=== PATIENT | female | born 1950 | race Caucasian/White ===

== ENCOUNTER 2018-09-18 16:33 | Inpatient (IN) | payer MEDICARE, BC ==
[~2018-09-18] VITALS: Ht 160 cm; Wt 64.4 kg
--- NOTE | 2018-09-18 17:29 | NUR ---
PRIOR TO ARRIVAL IN ER FORMING DEPARTMENT END FINDER STARTED 500ML NS TKO, 100ML IN PRIOR TO ARRIVAL
[2018-09-18] MEDS ORDERED: normal saline 1000ML IV soln IVB ONE (18:15)
[2018-09-18] MEDS: ondansetron/PF 4mg/2ml inj IV ONE ×2 (18:25→18:30)
[2018-09-18 18:50] LABS: BASOPHILS % (AUTO) 0 % (0-1); EOSINOPHILS % (AUTO) 0.2 % (0-6); HEMOGLOBIN 11.4 g/dl (12.0-16.0); LYMPHOCYTES # (AUTO) 0.3 X10'3 (1.1-4.8); MEAN CORPUSCULAR HEMOGLOBIN 32.3 PG (27.0-31.0); MEAN CORPUSCULAR HGB CONC 33.7 % (33.0-36.5); MEAN CORPUSCULAR VOLUME 95.8 FL (78-98); MEAN PLATELET VOLUME 9.1 FL (7.4-10.4); MONOCYTES # (AUTO) 0.3 X10'3 (0-0.9); MONOCYTES % (AUTO) 5.5 % (2-12); NEUTROPHILS # (AUTO) 5.5 X10'3 (1.8-7.7); NEUTROPHILS % (AUTO) 89.3 % (42-75); PLATELET COUNT 180 X10'3 (140-440); RED BLOOD COUNT 3.54 X10'6 (4.20-5.60); RED CELL DISTRIBUTION WIDTH 12.9 % (11.5-14.5); WHITE BLOOD COUNT 6.2 X10'3 (4.5-11.0)
[2018-09-18 19:11] LABS: PROTHROMBIN TIME 10.4 SECONDS (9.0-12.0)
--- NOTE | 2018-09-18 19:11 | NUR ---
RELIEVING RN FOR LUNCH, PT IS RESTING QUIETLY ON GURNEY,
--- NOTE | 2018-09-18 19:22 | NUR ---
ATTEMPTED IN AND OUT CATH, NO SUCCESS, PT AMB WITH MIN ASSIST TO RESTROOM
[2018-09-18 19:29] LABS: ALANINE AMINOTRANSFERASE 43 U/L (12-78); ALBUMIN 2.5 G/DL (3.4-5.0); ALBUMIN/GLOBULIN RATIO 0.6 (1.1-1.5); ALKALINE PHOSPHATASE 91 IU/L (46-116); ANION GAP 12 (8-16); ASPARTATE AMINO TRANSFERASE 39 U/L (10-37); BILIRUBIN,TOTAL 0.4 MG/DL (0.1-1.0); BLOOD UREA NITROGEN 62 MG/DL (7-18); BUN/CREATININE RATIO 30.7 (6.6-38.0); CALCIUM 9.7 MG/DL (8.5-10.1); CHLORIDE 92 MMOL/L (99-107); CREATININE 2.02 MG/DL (0.40-0.90); GLUCOSE 420 MG/DL (70-104); LIPASE 134 U/L (73-393); POTASSIUM 3.6 MMOL/L (3.5-5.1); SODIUM 127 MMOL/L (135-145); TOTAL CARBON DIOXIDE 22.9 MMOL/L (24-32); TOTAL PROTEIN 6.6 G/DL (6.4-8.2); eGFR 24 ML/MIN
[2018-09-18 20:17] LABS: CLARITY,URINE CLEAR (Clear); COLOR,URINE YELLOW (Yellow); GLUCOSE, URINE >=1000 mg/dl (Neg); KETONES,URINE TRACE mg/dl (Neg); LEUKOCYTE ESTERASE ,URINE NEGATIVE (Neg); NITRITES, URINE POSITIVE (Neg); OCCULT BLOOD,URINE SMALL (Neg); PROTEIN,URINE 100 mg/dl (Neg); UROBILINOGEN,URINE 0.2 E.U/dL (0.2-1.0)
[2018-09-18 20:19] LABS: UA COLLECTION TYPE CLN CATCH MIDSTREAM
[2018-09-18 20:20] LABS: BACTERIA,URINE 4+ /HPF (Neg); RBC,URINE 0-2 /HPF (0-2); SQUAMOUS EPITHELIAL CELL,UR FEW /LPF (FEW)
[2018-09-18] MEDS ORDERED: CefTRIAXone/D5W-Rocephin 1gm 50 ML IV ONE (21:00)
[2018-09-18] MEDS ORDERED: levoFLOXACIN-Levaquin 500mg/D5 100 ML IV ONE (21:10)
--- NOTE | 2018-09-18 21:12 | NUR ---
UNABLE TO DO MED REC AT THIS TIME, FAMILY IS GOING HOME TO BRING MEDS IN, PHARMACY SAID THEY DO NOT HAVE ANTIREJECTION MEDS
[2018-09-18] MEDS ORDERED: ondansetron/PF 4mg/2ml inj IV PRN (21:15)
[2018-09-18] MEDS: normal saline 1000ml 1,000 ML IV SCH (23:14)
[2018-09-18] MEDS ORDERED: insulin regular, human 10 units/0.1 ml syringe IV ONE (23:35)
--- NOTE | 2018-09-18 23:48 | NUR ---
Yarelis ANTHONY from ED called report, provided opportunity for questions. will assess when she arrives.
[2018-09-19 00:08] VITALS: BP 154/49
--- NOTE | 2018-09-19 00:40 | NUR ---
Daughter, Georgie, called requesting information. Spoke to patient who states okay to give daughter information. new code word given [id number]. Daughter became tearful when talking about mother. Encouraged to take deep breaths and try to sleep. Explained patient will be here and we will be monitoring her. Will continue to monitor.
[2018-09-19] MEDS ORDERED: ibuprofen 200mg tablet PO ONE (00:55)
--- NOTE | 2018-09-19 01:00 | NUR ---
Notified Sahil NARANJO of patient's temp of 102.7F oral, patient is allergic to tylenol, received order to give ibuprofen 600 mg po now, cancel troponins, and place kinney catheter to monitor output accurately if patient is incontinent or not able to get to restroom to provide strict I/Os. Will continue to monitor.
[2018-09-19] MEDS ORDERED: glucagon, human recombinant 1mg kit SUBCUT PRN ×2 (02:50→05:40)
[2018-09-19] MEDS ORDERED: dextrose ORAL solution 15 GM/59 ML bottle PO PRN ×4 (02:50→05:40)
[2018-09-19] MEDS ORDERED: MESSAGE TO PHARMACY PO ONE ×2 (02:50→05:40)
[2018-09-19] MEDS ORDERED: dextrose 50%-water 50ml dispensing syringe IV PRN ×4 (02:50→05:40)
[2018-09-19] MEDS ORDERED: insulin Lispro (HumaLOG) vial - multi-dose SQ SCH (02:50)
[2018-09-19 05:01] LABS: BASOPHILS % (AUTO) 0.2 % (0-1); EOSINOPHILS % (AUTO) 0 % (0-6); HEMATOCRIT 31.1 % (35.0-45.0); HEMOGLOBIN 10.4 g/dl (12.0-16.0); LYMPHOCYTES # (AUTO) 0.4 X10'3 (1.1-4.8); LYMPHOCYTES % (AUTO) 8.2 % (21-51); MEAN CORPUSCULAR HGB CONC 33.5 % (33.0-36.5); MEAN CORPUSCULAR VOLUME 95.5 FL (78-98); MEAN PLATELET VOLUME 9.5 FL (7.4-10.4); MONOCYTES % (AUTO) 0.2 % (2-12); NEUTROPHILS # (AUTO) 4.7 X10'3 (1.8-7.7); NEUTROPHILS % (AUTO) 91.4 % (42-75); PLATELET COUNT 166 X10'3 (140-440); RED BLOOD COUNT 3.26 X10'6 (4.20-5.60); RED CELL DISTRIBUTION WIDTH 12.8 % (11.5-14.5); WHITE BLOOD COUNT 5.2 X10'3 (4.5-11.0)
[2018-09-19 05:14] LABS: ALANINE AMINOTRANSFERASE 37 U/L (12-78); ALBUMIN 2.3 G/DL (3.4-5.0); ALBUMIN/GLOBULIN RATIO 0.6 (1.1-1.5); ALKALINE PHOSPHATASE 73 IU/L (46-116); ANION GAP 10 (8-16); ASPARTATE AMINO TRANSFERASE 37 U/L (10-37); BILIRUBIN,TOTAL 0.3 MG/DL (0.1-1.0); BLOOD UREA NITROGEN 63 MG/DL (7-18); BUN/CREATININE RATIO 34.6 (6.6-38.0); CALCIUM 9.5 MG/DL (8.5-10.1); CHLORIDE 96 MMOL/L (99-107); CREATININE 1.82 MG/DL (0.40-0.90); GLUCOSE 318 MG/DL (70-104); MAGNESIUM 1.9 MG/DL (1.5-2.4); PHOSPHORUS 2.7 MG/DL (2.3-4.5); SODIUM 130 MMOL/L (135-145); TOTAL CARBON DIOXIDE 24.1 MMOL/L (24-32); eGFR 28 ML/MIN
[2018-09-19 05:16] LABS: POTASSIUM 2.9 MMOL/L (3.5-5.1)
[2018-09-19] MEDS ORDERED: potassium Cl 20 mEq SR tablet PO ONE (05:35)
[2018-09-19] MEDS ORDERED: insulin regular, human vial - multi-dose SQ SCH (05:40)
--- NOTE | 2018-09-19 06:10 | NUR ---
Patient in room [facility]. I have received report from GABRIELLE Chery and had the opportunity to ask questions and assume patient care.
[2018-09-19 06:40] LABS: TOTAL CELLS COUNTED 100
[2018-09-19 06:41] LABS: PLATELET ESTIMATE NORMAL
--- NOTE | 2018-09-19 06:51 | NUR ---
Problems reprioritized. Patient report given, questions answered & plan of care reviewed with La Nena RN. Patient having vital signs taken.
[2018-09-19 07:00] VITALS: BP 124/40
--- NOTE | 2018-09-19 08:00 | NUR ---
Pt states, "I am withdrawaling & I need something as strong as you got, just tell them it is for pain." Otherwise, I am going to leave right now, un-hook me."Dr Melodie callahan informing of the above. Addendum: 09/19/18 at 0917 by La Nena Martines RN Delete. Wrong pt.
[2018-09-19 08:13] LABS: HEMOGLOBIN A1C 9.6 % (4.5-6.2)
--- NOTE | 2018-09-19 08:45 | NUR ---
Pt sleeping. Will administer haldol as RX'd when pt awakes & after takes shower she requested earlier today. Pt informed to wait to take shower until abx infused. Pt agreed @ that time. Addendum: 09/19/18 at 0918 by La Nena Martines RN [place]. Wrong pt.
[2018-09-19] MEDS: insulin Lispro (HumaLOG) vial - multi-dose SQ SCH ×3 (09:22→22:07)
[2018-09-19] MEDS ORDERED: [UNRECOGNIZED DRUG - OTHER] PO (09:57)
[2018-09-19] MEDS ORDERED: TACR1CAP28 PO ×2 (09:57)
[2018-09-19] MEDS ORDERED: CHOL400C8 PO (09:57)
[2018-09-19] MEDS ORDERED: MULT-933 PO (09:57)
[2018-09-19] MEDS ORDERED: PRE5T PO (09:57)
[2018-09-19] MEDS ORDERED: VALG450T4 PO (09:57)
[2018-09-19] MEDS ORDERED: PANT-47 PO (09:57)
[2018-09-19] MEDS ORDERED: PRAV20TA PO (09:57)
[2018-09-19] MEDS ORDERED: HYDR-4070 PO (09:57)
[2018-09-19] MEDS ORDERED: CARV-50 PO (09:57)
[2018-09-19] MEDS ORDERED: CHLO25TA2 PO (09:57)
[2018-09-19 10:30] VITALS: BP 146/47
[2018-09-19] MEDS: pantoprazole 40mg Tablet.DR PO SCH (11:15)
[2018-09-19] MEDS: acetaminophen 325mg tablet PO PRN ×2 (11:16→22:08)
[2018-09-19] MEDS: MYCOPHENOLATE PO SCH ×2 (11:35→20:23)
[2018-09-19] MEDS: tacrolimus anhydrous 1mg capsule PO SCH ×2 (11:35→21:47)
[2018-09-19] MEDS: polyethylene glycol 3350 17gm powd pack PO PRN (13:01)
[2018-09-19] MEDS: normal saline 1000ml 1,000 ML IV SCH ×2 (17:12→17:45)
--- NOTE | 2018-09-19 18:30 | NUR ---
Problems reprioritized. Patient report given, questions answered & plan of care reviewed with GABRIELLE Yoo.
[2018-09-19 20:00] VITALS: BP 177/62
[2018-09-19] MEDS: carVEDilol 12.5mg tablet PO SCH (20:23)
[2018-09-19] MEDS ORDERED: levoFLOXACIN-Levaquin 250mg/D5 50 ML IV SCH (21:00)
[2018-09-19] MEDS ORDERED: insulin glargine (Lantus) pen - multi-dose SQ SCH (21:00)
[2018-09-19] MEDS: hydrALAZINE 25 MG tablet PO SCH (21:47)
[2018-09-19 22:03] VITALS: BP 181/59
[2018-09-19] MEDS: insulin glargine (Lantus) pen - multi-dose SQ SCH (22:07)
[2018-09-20] VITALS: BP 103/38
--- NOTE | 2018-09-20 00:23 | NUR ---
Positive blood cultures - gram negative rods from right arm dated 09/18. Iman informed. Added Vanco 1g now and pharmacy to dose.
[2018-09-20] MEDS ORDERED: vancomycin/NS 1 GM ADD-VANTAGE 250 ML IV SCH (02:00)
[2018-09-20] MEDS: piperacillin/tazo 3.375gm/50ml 50 ML IV SCH ×3 (03:22→13:35)
[2018-09-20 05:24] LABS: BASOPHILS % (AUTO) 0.1 % (0-1); EOSINOPHILS % (AUTO) 0.2 % (0-6); HEMATOCRIT 33.5 % (35.0-45.0); HEMOGLOBIN 11.1 g/dl (12.0-16.0); LYMPHOCYTES # (AUTO) 0.4 X10'3 (1.1-4.8); LYMPHOCYTES % (AUTO) 11.8 % (21-51); MEAN CORPUSCULAR HEMOGLOBIN 31.8 PG (27.0-31.0); MEAN CORPUSCULAR HGB CONC 33.2 % (33.0-36.5); MEAN CORPUSCULAR VOLUME 95.7 FL (78-98); MEAN PLATELET VOLUME 9.9 FL (7.4-10.4); MONOCYTES # (AUTO) 0.1 X10'3 (0-0.9); MONOCYTES % (AUTO) 3.4 % (2-12); NEUTROPHILS % (AUTO) 84.5 % (42-75); PLATELET COUNT 170 X10'3 (140-440); RED CELL DISTRIBUTION WIDTH 12.9 % (11.5-14.5); WHITE BLOOD COUNT 3.6 X10'3 (4.5-11.0)
[2018-09-20 05:50] LABS: ALANINE AMINOTRANSFERASE 80 U/L (12-78); ALBUMIN 2.2 G/DL (3.4-5.0); ALBUMIN/GLOBULIN RATIO 0.6 (1.1-1.5); ALKALINE PHOSPHATASE 76 IU/L (46-116); ANION GAP 10 (8-16); ASPARTATE AMINO TRANSFERASE 113 U/L (10-37); BILIRUBIN,TOTAL 0.3 MG/DL (0.1-1.0); BLOOD UREA NITROGEN 58 MG/DL (7-18); CALCIUM 9.6 MG/DL (8.5-10.1); CHLORIDE 98 MMOL/L (99-107); CREATININE 2.07 MG/DL (0.40-0.90); GLUCOSE 255 MG/DL (70-104); MAGNESIUM 1.9 MG/DL (1.5-2.4); PHOSPHORUS 3.2 MG/DL (2.3-4.5); POTASSIUM 3.5 MMOL/L (3.5-5.1); SODIUM 132 MMOL/L (135-145); TOTAL CARBON DIOXIDE 23.9 MMOL/L (24-32); TOTAL PROTEIN 6.1 G/DL (6.4-8.2); eGFR 24 ML/MIN
--- NOTE | 2018-09-20 06:30 | NUR ---
Patient in room [facility]. I have received report from GABRIELLE Yoo and had the opportunity to ask questions and assume patient care.
--- NOTE | 2018-09-20 06:40 | NUR ---
Problems reprioritized. Patient report given, questions answered & plan of care reviewed with GABRIELLE Deutsch.
[2018-09-20 07:00] VITALS: BP 131/61
[2018-09-20] MEDS: MYCOPHENOLATE PO SCH ×2 (07:08→19:18)
[2018-09-20] MEDS: predniSONE 5mg tablet PO SCH (07:10)
[2018-09-20] MEDS: multivitamins, therapeutics tablet PO SCH (07:10)
[2018-09-20] MEDS: tacrolimus anhydrous 1mg capsule PO SCH ×2 (07:10→21:10)
[2018-09-20] MEDS: pantoprazole 40mg Tablet.DR PO SCH (07:11)
[2018-09-20] MEDS: carVEDilol 12.5mg tablet PO SCH ×2 (07:11→19:18)
[2018-09-20] MEDS: vitamin D (cholecalciferol) 1,000 unit tablet PO SCH (07:11)
[2018-09-20] MEDS: atorvastatin 10mg tablet PO SCH (07:12)
[2018-09-20] MEDS: polyethylene glycol 3350 17gm powd pack PO PRN (07:19)
[2018-09-20] MEDS: insulin Lispro (HumaLOG) vial - multi-dose SQ SCH ×3 (10:29→19:13)
[2018-09-20 12:00] VITALS: BP 100/65
--- NOTE | 2018-09-20 12:15 | NUR ---
Pt off the floor to CT scan
[2018-09-20] MEDS: acetaminophen 325mg tablet PO PRN ×2 (12:43→21:24)
--- NOTE | 2018-09-20 14:30 | NUR ---
Pt off the floor to NM renal scan
--- NOTE | 2018-09-20 16:30 | NUR ---
Pt returned to room 340A from NM renal scan
--- NOTE | 2018-09-20 18:10 | NUR ---
Problems reprioritized. Patient report given, questions answered & plan of care reviewed with GABRIELLE Yoo.
--- NOTE | 2018-09-20 18:21 | NUR ---
Initial: Pt admitted with weakness and UTI. Pt with A1c 9.6. Attempted visit with pt at bedside however pt was unavailable. Written DM education with referral to outpatient DM class and RD contact information left at patient's bedside for return. Pt currently on a renal CHO controlled diet with documented PO intake averaging 50% x 2 meals. Will continue to follow PO trends and monitor need for ONS. LBM 09/15, pt received Miralax 09/20. Recommendations: 1) Continue with renal CHO controlled diet 2) Monitor need for ONS 3) Monitor need for additional bowel care 4) Wt per rx Addendum: 09/20/18 at [address] Amended: Links added.
[2018-09-20] MEDS: piperacillin/tazobactam inj. 2.25 GM in normal saline 50ml IV IV SCH (19:19)
[2018-09-20 19:20] VITALS: BP 120/48
[2018-09-20 20:00] VITALS: BP 122/81
[2018-09-20 21:10] VITALS: BP 117/69
[2018-09-20] MEDS: hydrALAZINE 25 MG tablet PO SCH (21:10)
[2018-09-20] MEDS: insulin glargine (Lantus) pen - multi-dose SQ SCH (21:22)
[2018-09-20] MEDS: normal saline 1000ml 1,000 ML IV SCH (21:23)
[2018-09-21] VITALS: BP 126/83
[2018-09-21] MEDS: piperacillin/tazobactam inj. 2.25 GM in normal saline 50ml IV IV SCH ×4 (01:56→19:26)
[2018-09-21 04:59] LABS: BASOPHILS % (AUTO) 0.1 % (0-1); EOSINOPHILS % (AUTO) 0.1 % (0-6); HEMATOCRIT 30.4 % (35.0-45.0); HEMOGLOBIN 10.2 g/dl (12.0-16.0); LYMPHOCYTES # (AUTO) 0.3 X10'3 (1.1-4.8); MEAN CORPUSCULAR HEMOGLOBIN 31.8 PG (27.0-31.0); MEAN CORPUSCULAR HGB CONC 33.5 % (33.0-36.5); MEAN CORPUSCULAR VOLUME 94.8 FL (78-98); MEAN PLATELET VOLUME 9.4 FL (7.4-10.4); MONOCYTES # (AUTO) 0.4 X10'3 (0-0.9); MONOCYTES % (AUTO) 11.7 % (2-12); NEUTROPHILS # (AUTO) 2.6 X10'3 (1.8-7.7); NEUTROPHILS % (AUTO) 78.1 % (42-75); PLATELET COUNT 152 X10'3 (140-440); RED BLOOD COUNT 3.21 X10'6 (4.20-5.60); RED CELL DISTRIBUTION WIDTH 12.7 % (11.5-14.5); WHITE BLOOD COUNT 3.3 X10'3 (4.5-11.0)
[2018-09-21 05:20] LABS: ALANINE AMINOTRANSFERASE 100 U/L (12-78); ALBUMIN 1.9 G/DL (3.4-5.0); ALBUMIN/GLOBULIN RATIO 0.5 (1.1-1.5); ALKALINE PHOSPHATASE 96 IU/L (46-116); ANION GAP 13 (8-16); ASPARTATE AMINO TRANSFERASE 151 U/L (10-37); BILIRUBIN,TOTAL 0.3 MG/DL (0.1-1.0); BLOOD UREA NITROGEN 64 MG/DL (7-18); BUN/CREATININE RATIO 27.7 (6.6-38.0); CALCIUM 9.2 MG/DL (8.5-10.1); CHLORIDE 98 MMOL/L (99-107); CREATININE 2.31 MG/DL (0.40-0.90); GLUCOSE 108 MG/DL (70-104); MAGNESIUM 1.9 MG/DL (1.5-2.4); PHOSPHORUS 2.1 MG/DL (2.3-4.5); SODIUM 132 MMOL/L (135-145); TOTAL CARBON DIOXIDE 21.2 MMOL/L (24-32); TOTAL PROTEIN 5.4 G/DL (6.4-8.2); eGFR 21 ML/MIN
[2018-09-21 05:27] LABS: POTASSIUM 2.8 MMOL/L (3.5-5.1)
--- NOTE | 2018-09-21 06:05 | NUR ---
Patient in room [facility]. I have received report from Naila Sousa RN and had the opportunity to ask questions and assume patient care.
--- NOTE | 2018-09-21 06:33 | NUR ---
Critical K+ 2.9 called result to Rishi. Two vm left, no response yet, no replacement orders. Notified daytime RN during change of shift report.
--- NOTE | 2018-09-21 06:47 | NUR ---
Problems reprioritized. Patient report given, questions answered & plan of care reviewed with GABRIELLE Stern.
[2018-09-21 07:11] LABS: LARGE PLATELETS FEW; PLATELET ESTIMATE NORMAL; TOTAL CELLS COUNTED 100
[2018-09-21 07:36] VITALS: BP 162/59
[2018-09-21] MEDS: atorvastatin 10mg tablet PO SCH (09:10)
[2018-09-21] MEDS: MYCOPHENOLATE PO SCH ×2 (09:10→21:16)
[2018-09-21] MEDS: carVEDilol 12.5mg tablet PO SCH ×2 (09:10→19:26)
[2018-09-21] MEDS: predniSONE 5mg tablet PO SCH (09:10)
[2018-09-21] MEDS: tacrolimus anhydrous 1mg capsule PO SCH ×2 (09:12→21:16)
[2018-09-21] MEDS: vitamin D (cholecalciferol) 1,000 unit tablet PO SCH (09:12)
[2018-09-21] MEDS: pantoprazole 40mg Tablet.DR PO SCH (09:12)
[2018-09-21] MEDS: multivitamins, therapeutics tablet PO SCH (09:12)
[2018-09-21] MEDS: insulin Lispro (HumaLOG) vial - multi-dose SQ SCH ×3 (09:17→19:27)
[2018-09-21] MEDS ORDERED: potassium Cl 20 mEq SR tablet PO PRN (12:00)
[2018-09-21] MEDS ORDERED: potassium Cl 40MEQ/NS 500ml 500 ML IV PRN ×2 (12:00)
[2018-09-21 12:15] VITALS: BP 153/57
[2018-09-21] MEDS: acetaminophen 325mg tablet PO PRN (12:35)
[2018-09-21] MEDS: potassium Cl 20 mEq SR tablet PO PRN ×2 (13:00→18:02)
--- NOTE | 2018-09-21 17:00 | NUR ---
Patient is wanting Dr. Crews to contact the transplant center so that they can discuss her plan of care and get the history of her kidney function. She wants them to cover all their bases. I explained that the doctor would call and request our records. Will pass on to mini shifter to pass on to days tomorrow to ask the superintendent measurement when they round if they have contacted the transplant center.
[2018-09-21 18:00] VITALS: BP 163/57
--- NOTE | 2018-09-21 18:05 | NUR ---
Problems reprioritized. Patient report given, questions answered & plan of care reviewed with Naila Sousa RN.
[2018-09-21] MEDS: normal saline 1000ml 1,000 ML IV SCH (18:52)
[2018-09-21 19:30] VITALS: BP 184/73
[2018-09-21 21:00] VITALS: BP 100/46
[2018-09-21] MEDS: hydrALAZINE 25 MG tablet PO SCH (21:16)
[2018-09-21] MEDS: insulin glargine (Lantus) pen - multi-dose SQ SCH (21:21)
[2018-09-22] VITALS: BP 159/60
[2018-09-22] MEDS: piperacillin/tazobactam inj. 2.25 GM in normal saline 50ml IV IV SCH ×4 (01:42→19:05)
[2018-09-22] MEDS: potassium Cl 20 mEq SR tablet PO PRN (01:42)
[2018-09-22 04:53] LABS: BASOPHILS % (AUTO) 0.2 % (0-1); EOSINOPHILS % (AUTO) 0.2 % (0-6); HEMATOCRIT 33.3 % (35.0-45.0); HEMOGLOBIN 11.1 g/dl (12.0-16.0); LYMPHOCYTES # (AUTO) 0.4 X10'3 (1.1-4.8); LYMPHOCYTES % (AUTO) 15.1 % (21-51); MEAN CORPUSCULAR HEMOGLOBIN 31.6 PG (27.0-31.0); MEAN CORPUSCULAR HGB CONC 33.4 % (33.0-36.5); MEAN CORPUSCULAR VOLUME 94.8 FL (78-98); MEAN PLATELET VOLUME 9.4 FL (7.4-10.4); MONOCYTES # (AUTO) 0.2 X10'3 (0-0.9); MONOCYTES % (AUTO) 7.4 % (2-12); NEUTROPHILS # (AUTO) 2.3 X10'3 (1.8-7.7); NEUTROPHILS % (AUTO) 77.1 % (42-75); PLATELET COUNT 192 X10'3 (140-440); RED BLOOD COUNT 3.51 X10'6 (4.20-5.60)
[2018-09-22 05:07] LABS: PLATELET ESTIMATE NORMAL; TOTAL CELLS COUNTED 100
[2018-09-22 05:19] LABS: ALANINE AMINOTRANSFERASE 89 U/L (12-78); ALBUMIN 2.1 G/DL (3.4-5.0); ALBUMIN/GLOBULIN RATIO 0.5 (1.1-1.5); ALKALINE PHOSPHATASE 97 IU/L (46-116); ANION GAP 13 (8-16); ASPARTATE AMINO TRANSFERASE 83 U/L (10-37); BILIRUBIN,TOTAL 0.3 MG/DL (0.1-1.0); BLOOD UREA NITROGEN 46 MG/DL (7-18); BUN/CREATININE RATIO 24.9 (6.6-38.0); CALCIUM 9.4 MG/DL (8.5-10.1); CHLORIDE 100 MMOL/L (99-107); CREATININE 1.85 MG/DL (0.40-0.90); GLUCOSE 165 MG/DL (70-104); MAGNESIUM 1.8 MG/DL (1.5-2.4); PHOSPHORUS 1.8 MG/DL (2.3-4.5); POTASSIUM 3.5 MMOL/L (3.5-5.1); SODIUM 134 MMOL/L (135-145); eGFR 27 ML/MIN
--- NOTE | 2018-09-22 06:15 | NUR ---
Patient in room [facility]. I have received report from Naila Black and had the opportunity to ask questions and assume patient care.
[2018-09-22 07:30] VITALS: BP 192/68
[2018-09-22] MEDS: tacrolimus anhydrous 1mg capsule PO SCH ×2 (08:38→21:33)
[2018-09-22] MEDS: atorvastatin 10mg tablet PO SCH (08:38)
[2018-09-22] MEDS: pantoprazole 40mg Tablet.DR PO SCH (08:38)
[2018-09-22] MEDS: vitamin D (cholecalciferol) 1,000 unit tablet PO SCH (08:38)
[2018-09-22] MEDS: predniSONE 5mg tablet PO SCH (08:38)
[2018-09-22] MEDS: carVEDilol 12.5mg tablet PO SCH ×2 (08:38→19:05)
[2018-09-22] MEDS: multivitamins, therapeutics tablet PO SCH (08:38)
[2018-09-22] MEDS: MYCOPHENOLATE PO SCH ×2 (08:39→19:05)
[2018-09-22] MEDS: insulin Lispro (HumaLOG) vial - multi-dose SQ SCH ×3 (10:04→19:03)
[2018-09-22 11:32] VITALS: BP 194/68
[2018-09-22] MEDS: diltiazem CD 180mg cap (once-daily) PO SCH (13:40)
[2018-09-22 18:00] VITALS: BP 160/50
--- NOTE | 2018-09-22 18:21 | NUR ---
Problems reprioritized. Patient report given,Ravinder ANTHONY questions answered & plan of care reviewed with .
--- NOTE | 2018-09-22 18:30 | NUR ---
Patient in room [facility]. I have received report from Travis ANTHONY and had the opportunity to ask questions and assume patient care.
[2018-09-22] MEDS: insulin glargine (Lantus) pen - multi-dose SQ SCH (21:39)
--- NOTE | 2018-09-22 21:54 | NUR ---
Pt IV pulled out and pt refuses another IV. Notified Rishi MICHAELS that pt IV was pulled out. Advised to keep educating pt on importance of IVfor ABX. Will continue to educate pt
[2018-09-23] VITALS: BP 150/60
[2018-09-23] MEDS ORDERED: VANCOMYCIN LEVEL IV ONE (01:30)
[2018-09-23] MEDS: piperacillin/tazobactam inj. 2.25 GM in normal saline 50ml IV IV SCH ×4 (02:00→19:43)
[2018-09-23 05:26] LABS: HEMOGLOBIN 10.9 g/dl (12.0-16.0); WHITE BLOOD COUNT 2.7 X10'3 (4.5-11.0)
[2018-09-23 05:30] LABS: BASOPHILS % (AUTO) 1.8 % (0-1); EOSINOPHILS % (AUTO) 0.5 % (0-6); HEMATOCRIT 33.1 % (35.0-45.0); LYMPHOCYTES # (AUTO) 0.4 X10'3 (1.1-4.8); LYMPHOCYTES % (AUTO) 13.9 % (21-51); MEAN CORPUSCULAR HEMOGLOBIN 31.9 PG (27.0-31.0); MEAN CORPUSCULAR HGB CONC 33.1 % (33.0-36.5); MEAN CORPUSCULAR VOLUME 96.3 FL (78-98); MEAN PLATELET VOLUME 9.6 FL (7.4-10.4); MONOCYTES # (AUTO) 0.5 X10'3 (0-0.9); MONOCYTES % (AUTO) 16.7 % (2-12); NEUTROPHILS # (AUTO) 1.8 X10'3 (1.8-7.7); NEUTROPHILS % (AUTO) 67.1 % (42-75); PLATELET COUNT 207 X10'3 (140-440); RED BLOOD COUNT 3.44 X10'6 (4.20-5.60); RED CELL DISTRIBUTION WIDTH 12.3 % (11.5-14.5)
[2018-09-23 05:33] LABS: ALANINE AMINOTRANSFERASE 69 U/L (12-78); ALBUMIN 2.1 G/DL (3.4-5.0); ALBUMIN/GLOBULIN RATIO 0.6 (1.1-1.5); ALKALINE PHOSPHATASE 90 IU/L (46-116); ANION GAP 12 (8-16); ASPARTATE AMINO TRANSFERASE 48 U/L (10-37); BILIRUBIN,TOTAL 0.2 MG/DL (0.1-1.0); BLOOD UREA NITROGEN 34 MG/DL (7-18); BUN/CREATININE RATIO 25.6 (6.6-38.0); CALCIUM 9.7 MG/DL (8.5-10.1); CHLORIDE 102 MMOL/L (99-107); CREATININE 1.33 MG/DL (0.40-0.90); GLUCOSE 175 MG/DL (70-104); MAGNESIUM 1.5 MG/DL (1.5-2.4); PHOSPHORUS 1.7 MG/DL (2.3-4.5); POTASSIUM 3.7 MMOL/L (3.5-5.1); SODIUM 136 MMOL/L (135-145); TOTAL CARBON DIOXIDE 21.6 MMOL/L (24-32); TOTAL PROTEIN 5.9 G/DL (6.4-8.2); eGFR 40 ML/MIN
[2018-09-23 06:15] LABS: PLATELET ESTIMATE NORMAL; TOTAL CELLS COUNTED 100
--- NOTE | 2018-09-23 06:48 | NUR ---
Problems reprioritized. Patient report given, questions answered & plan of care reviewed with Lynn RN.
--- NOTE | 2018-09-23 06:55 | NUR ---
Patient in room [facility]. I have received report from GABRIELLE Castellon and had the opportunity to ask questions and assume patient care.
[2018-09-23 08:00] VITALS: BP 166/56
[2018-09-23] MEDS: atorvastatin 10mg tablet PO SCH (09:15)
[2018-09-23] MEDS: pantoprazole 40mg Tablet.DR PO SCH (09:15)
[2018-09-23] MEDS: diltiazem CD 180mg cap (once-daily) PO SCH (09:15)
[2018-09-23] MEDS: MYCOPHENOLATE PO SCH ×2 (09:15→19:36)
[2018-09-23] MEDS: tacrolimus anhydrous 1mg capsule PO SCH ×2 (09:15→19:42)
[2018-09-23] MEDS: carVEDilol 12.5mg tablet PO SCH ×2 (09:15→19:36)
[2018-09-23] MEDS: predniSONE 5mg tablet PO SCH (09:15)
[2018-09-23] MEDS: vitamin D (cholecalciferol) 1,000 unit tablet PO SCH (09:15)
[2018-09-23] MEDS: insulin Lispro (HumaLOG) vial - multi-dose SQ SCH ×3 (09:21→19:52)
[2018-09-23] MEDS: multivitamins, therapeutics tablet PO SCH (09:22)
[2018-09-23 11:00] VITALS: BP 142/51
[2018-09-23] MEDS: acetaminophen 325mg tablet PO PRN (12:10)
[2018-09-23 18:00] VITALS: BP 143/60
--- NOTE | 2018-09-23 18:56 | NUR ---
Problems reprioritized. Patient report given, questions answered & plan of care reviewed with GABRIELLE Vega.
[2018-09-23] MEDS: insulin glargine (Lantus) pen - multi-dose SQ SCH (21:32)
[2018-09-24] VITALS: BP 147/57
[2018-09-24] MEDS: piperacillin/tazobactam inj. 2.25 GM in normal saline 50ml IV IV SCH ×4 (02:04→19:43)
[2018-09-24 05:46] LABS: MAGNESIUM 1.5 MG/DL (1.5-2.4); POTASSIUM 3.6 MMOL/L (3.5-5.1)
--- NOTE | 2018-09-24 06:30 | NUR ---
Patient in room [facility]. I have received report from MARGARITA ANTHONY and had the opportunity to ask questions and assume patient care.
--- NOTE | 2018-09-24 06:46 | NUR ---
Problems reprioritized. Patient report given, questions answered & plan of care reviewed with Robert RN.
[2018-09-24 07:07] VITALS: BP 160/49
[2018-09-24] MEDS: pantoprazole 40mg Tablet.DR PO SCH (08:24)
[2018-09-24] MEDS: multivitamins, therapeutics tablet PO SCH (08:25)
[2018-09-24] MEDS: carVEDilol 12.5mg tablet PO SCH ×2 (08:26→19:44)
[2018-09-24] MEDS: vitamin D (cholecalciferol) 1,000 unit tablet PO SCH (08:26)
[2018-09-24] MEDS: tacrolimus anhydrous 1mg capsule PO SCH ×2 (08:27→21:03)
[2018-09-24] MEDS: atorvastatin 10mg tablet PO SCH (08:27)
[2018-09-24] MEDS: predniSONE 5mg tablet PO SCH (08:27)
[2018-09-24] MEDS: MYCOPHENOLATE PO SCH ×2 (08:28→19:44)
[2018-09-24] MEDS: acetaminophen 325mg tablet PO PRN ×2 (08:30→19:44)
[2018-09-24] MEDS: insulin Lispro (HumaLOG) vial - multi-dose SQ SCH ×3 (08:43→18:50)
[2018-09-24] MEDS: diltiazem CD 180mg cap (once-daily) PO SCH (08:48)
[2018-09-24 12:00] VITALS: BP 153/56
[2018-09-24 18:00] VITALS: BP 142/82
--- NOTE | 2018-09-24 18:30 | NUR ---
Patient in room [facility]. I have received report from Robert ANTHONY and had the opportunity to ask questions and assume patient care.
--- NOTE | 2018-09-24 18:43 | NUR ---
Problems reprioritized. Patient report given, questions answered & plan of care reviewed with Vickie ANTHONY.
[2018-09-24] MEDS: insulin glargine (Lantus) pen - multi-dose SQ SCH (21:07)
[2018-09-25] VITALS: BP 146/54
[2018-09-25] MEDS: piperacillin/tazobactam inj. 2.25 GM in normal saline 50ml IV IV SCH ×3 (01:49→14:00)
--- NOTE | 2018-09-25 06:09 | NUR ---
Problems reprioritized. Patient report given, questions answered & plan of care reviewed with Mallory ANTHONY.
[2018-09-25 06:28] LABS: MAGNESIUM 1.4 MG/DL (1.5-2.4); POTASSIUM 3.6 MMOL/L (3.5-5.1)
[2018-09-25 07:30] VITALS: BP 144/48
[2018-09-25] MEDS: diltiazem CD 180mg cap (once-daily) PO SCH (08:34)
[2018-09-25] MEDS: vitamin D (cholecalciferol) 1,000 unit tablet PO SCH (08:34)
[2018-09-25] MEDS: pantoprazole 40mg Tablet.DR PO SCH (08:34)
[2018-09-25] MEDS: atorvastatin 10mg tablet PO SCH (08:35)
[2018-09-25] MEDS: multivitamins, therapeutics tablet PO SCH (08:35)
[2018-09-25] MEDS: predniSONE 5mg tablet PO SCH (08:35)
[2018-09-25] MEDS: carVEDilol 12.5mg tablet PO SCH (08:35)
[2018-09-25] MEDS: MYCOPHENOLATE PO SCH (08:35)
[2018-09-25] MEDS: tacrolimus anhydrous 1mg capsule PO SCH (08:35)
[2018-09-25] MEDS: insulin Lispro (HumaLOG) vial - multi-dose SQ SCH ×2 (08:48→13:10)
[2018-09-25] MEDS ORDERED: magnesium oxide 400mg tablet PO SCH (11:10)
[2018-09-25 11:30] VITALS: BP 164/60
--- NOTE | 2018-09-25 15:47 | NUR ---
reassessment: Pt PO 50-75% meals improving. LBM 09/24. Receiving electrolyte replacement per w/ ESRD on HD. Will continue to monitor. Recommendations: 1) Continue with renal CHO controlled diet 2) Monitor need for ONS 3) Wt per rx Addendum: 09/25/18 at [address] Amended: Links added.
[2018-09-25] MEDS: acetaminophen 325mg tablet PO PRN (16:00)
--- NOTE | 2018-09-25 16:08 | NUR ---
Extended PIV inserted to the right upper arm cephalic vein x 2 attempts using ultrasound. Edgard albarado. Addendum: 09/25/18 at 1609 by Bella Huang RN Amended: Links added.
--- NOTE | 2018-09-25 16:43 | NUR ---
Patient discharged home with . All belongings taken from room. stable and appropriate for discharge. patient discharged with extended IV, arrangements made with case management for home health to do abx infusion x2 weeks.
== END 2018-09-25 16:30 | disposition home IV services (08) | DRG 872 ==
LOC: ER 16:33 → ED HOLD 21:12 → SUR 3N 23:52
PROVIDERS: ADMIT Internal Medicine Critical Care Medicine; ATTEND Internal Medicine Critical Care Medicine
PROC: CT131ZZ Planar Nuclear Medicine Imaging of Kidneys, Ureters and Bladder using Technetium 99m (Tc-99m) (ICD-10-PCS; principal; 2018-09-20)
DX: A41.9 Sepsis, unspecified organism (principal); N39.0 Urinary tract infection, site not specified; Z94.0 Kidney transplant status; E11.9 Type 2 diabetes mellitus without complications; I10 Essential (primary) hypertension; Z79.899 Other long term (current) drug therapy; Z88.0 Allergy status to penicillin; Z88.1 Allergy status to other antibiotic agents; Z88.6 Allergy status to analgesic agent; Z87.891 Personal history of nicotine dependence
CPT/HCPCS: 36415; 71045; 74176; 78707; 80053; 81001; 82948; 83036; 83605; 83690; 83735; 84100; 84132; 84484; 85025; 85610; 87040; 87070; 87077; 87088; 87186; 93005; 96360; 97116; 97161; 97530; 99285; A9562; G0378; J0696; J1815; J1956; J2405; J2543; J3370; J7030; J7507; J7512